=== PATIENT | male | born 1980 | race Caucasian/White ===

== ENCOUNTER 2021-11-17 14:36 | Observation (INO) ==
[2021-11-17] MEDS ORDERED: *HR* OxyCODONE Immed Rel 15 MG TABLET PO STA ×2 (20:22→20:35)
[2021-11-17] MEDS ORDERED: *HR* Dextrose 50 % in Water (Syg) 50 ML SYRINGE IVP PRN (20:23)
[2021-11-17] MEDS ORDERED: D5% in Water 1,000 ML IVC PRN (20:23)
[2021-11-17] MEDS ORDERED: Dextrose 4 GM Chewable Tablets PO PRN ×2 (20:23)
[2021-11-17] MEDS ORDERED: Prochlorperazine 10 MG/2 ML VIAL IVP PRN (20:33)
[2021-11-17] MEDS ORDERED: Naloxone 0.4 MG/ML INJ IVP PRN (20:35)
[2021-11-17] MEDS ORDERED: Acetaminophen 325 MG TABLET PO PRN (20:35)
[2021-11-17] MEDS: 0.9 % Sodium Chloride 1,000 ML IVC SCH (21:16)
[2021-11-18] MEDS ORDERED: *HR* LORazepam 2 MG/ML VIAL IVP ONE (00:02)
[2021-11-18] MEDS: Insulin LISPRO 300 UNITS/3 ML VIAL SUBQ SCH ×4 (00:08→17:10)
[2021-11-18 02:24] LABS: Hematocrit 38.4 % (37.5-50.1); Hemoglobin 13.4 g/dL (12.9-16.9); Mean Corpuscular HGB Conc 34.9 g/dL (31.6-35.5); Mean Corpuscular Hemoglobin 31.8 pg (28.0-33.3); Mean Platelet Volume 9.7 fL (9.4-12.4); Platelet Count 266 K/mcL (140-400); Red Blood Count 4.22 M/mcL (4.19-5.50); Red Cell Distribution Width 12.2 % (11.5-14.5)
[2021-11-18 02:41] LABS: BUN/Creatinine Ratio 14 (6-26); Blood Urea Nitrogen 21 mg/dL (6-20); Calcium 8.8 mg/dL (8.6-10.3); Carbon Dioxide 26 mEq/L (23-29); Chloride 104 mEq/L (98-107); Chol/HDL Ratio 3.9 (0-4.9); Cholesterol 116 mg/dL (< 200); Glucose 117 mg/dL (70-105); HDL Cholesterol 30 mg/dL (40-59); LDL Cholesterol,Calculated 51 mg/dL (< 100); Magnesium 1.8 mg/dL (1.6-2.6); Osmolality,Calculated 288 (280-300); Sodium 137 mEq/L (136-145); Triglycerides 176 mg/dL (< 150); eGFR For African Americans > 60 (> 60); eGFR For Non-African Americans 50 (> 60)
[2021-11-18 07:46] LABS: Estimated Average Glucose 151 mg/dl; Hemoglobin A1C 6.9 %
[2021-11-18] MEDS ORDERED: Venlafaxine XR (24 HR) 37.5 MG CAP.ER.24H PO SCH (09:00)
[2021-11-18] MEDS ORDERED: hydroCHLOROthiazide 25 MG TABLET PO SCH (09:00)
[2021-11-18] MEDS ORDERED: Isovue-300 50ML VIAL ONE (11:22)
[2021-11-18] MEDS ORDERED: CeFAZolin Syr 2,000MG/20 ML 2,000 MG/20 ML SYRINGE IVPB ONE (11:45)
[2021-11-18] MEDS ORDERED: Ondansetron 4 MG/2 ML VIAL IVP PRN (11:51)
[2021-11-18] MEDS ORDERED: *HR* FentaNYL (PF) 100 MCG/2 ML VIAL IVP PRN (11:51)
[2021-11-18] MEDS ORDERED: *HR* Propofol 200 MG/20 ML VIAL IVP ONE (11:57)
[2021-11-18] MEDS ORDERED: Ketorolac 30 MG/ML VIAL ONE (11:57)
[2021-11-18] MEDS ORDERED: Lidocaine -MPF 2% 5 ML VIAL ONE (11:57)
[2021-11-18] MEDS ORDERED: *HR* FentaNYL (PF) 100 MCG/2 ML VIAL ONE (11:57)
[2021-11-18] MEDS ORDERED: Ondansetron 4 MG/2 ML VIAL ONE (11:57)
[2021-11-18] MEDS ORDERED: *HR* Midazolam HCl 2 MG/2 ML VIAL ONE (11:57)
[2021-11-18] MEDS ORDERED: CeFAZolin 2,000 MG/120 ML BAG IVPB ONE (12:00)
[2021-11-18] MEDS: 0.9 % Sodium Chloride 1,000 ML IVC SCH (12:24)
[2021-11-18] MEDS ORDERED: *HR* HYDROMORPHONE 2 MG/ML VIAL ONE (13:16)
[2021-11-18] MEDS ORDERED: *HR* Dextrose 50 % in Water (Syg) 50 ML SYRINGE IVP PRN (14:16)
[2021-11-18] MEDS ORDERED: Naloxone 0.4 MG/ML INJ IVP PRN (14:16)
[2021-11-18] MEDS ORDERED: 0.9 % Sodium Chloride 1,000 ML IVC SCH (14:16)
[2021-11-18] MEDS ORDERED: Prochlorperazine 10 MG/2 ML VIAL IVP PRN (14:16)
[2021-11-18] MEDS ORDERED: Dextrose 4 GM Chewable Tablets PO PRN ×2 (14:16)
[2021-11-18] MEDS ORDERED: D5% in Water 1,000 ML IVC PRN (14:16)
[2021-11-18] MEDS ORDERED: Acetaminophen 325 MG TABLET PO PRN (14:16)
[2021-11-18] MEDS ORDERED: *HR* Belladonna Alkaloids/Opium 30 MG RECTAL SUPPOSITORY RC PRN (14:16)
[2021-11-18] MEDS ORDERED: Ringers Solution, Lactated 1,000 ML IV ONE (14:25)
[2021-11-18] MEDS ORDERED: Ringers Solution, Lactated 1,000 ML IVC SCH (14:30)
[2021-11-18] MEDS ORDERED: Melatonin 3 MG TABLET PO PRN (14:31)
[2021-11-18] MEDS ORDERED: CeFAZolin 2 GM/100 ML BAG IVPB ONE (15:00)
[2021-11-18] MEDS ORDERED: CEFAZOLIN 2 GM/100 ML IVPB ONE (15:00)
[2021-11-18] MEDS ORDERED: CEFAZOLIN 2000 MG/100 ML IVPB ONE ×2 (15:00)
[2021-11-18] MEDS ORDERED: Insulin LISPRO 300 UNITS/3 ML VIAL SUBQ SCH (18:00)
[2021-11-19 03:58] VITALS: O2SAT 96
[2021-11-19 05:23] LABS: Hematocrit 39.4 % (37.5-50.1); Hemoglobin 13.6 g/dL (12.9-16.9); Mean Corpuscular HGB Conc 34.5 g/dL (31.6-35.5); Mean Corpuscular Volume 89.7 fL (83.0-100.0); Mean Platelet Volume 9.9 fL (9.4-12.4); Platelet Count 296 K/mcL (140-400); Red Blood Count 4.39 M/mcL (4.19-5.50); Red Cell Distribution Width 12.1 % (11.5-14.5); White Blood Count 11.4 K/mcL (4.3-11.1)
[2021-11-19 05:39] LABS: BUN/Creatinine Ratio 19 (6-26); Blood Urea Nitrogen 18 mg/dL (6-20); Calcium 9.1 mg/dL (8.6-10.3); Carbon Dioxide 21 mEq/L (23-29); Chloride 102 mEq/L (98-107); Glucose 137 mg/dL (70-105); Osmolality,Calculated 282 (280-300); Potassium 4.3 mEq/L (3.5-5.1); Sodium 134 mEq/L (136-145); eGFR For African Americans > 60 (> 60); eGFR For Non-African Americans > 60 (> 60)
[2021-11-19 07:16] VITALS: BP 126/77; PULSE 76; TEMP 97.5
[2021-11-19] MEDS: Insulin LISPRO 300 UNITS/3 ML VIAL SUBQ SCH (08:16)
[2021-11-19] MEDS ORDERED: Venlafaxine XR (24 HR) 37.5 MG CAP.ER.24H PO SCH (09:00)
[2021-11-19] MEDS ORDERED: hydroCHLOROthiazide 25 MG TABLET PO SCH (09:00)
== END 2021-11-19 10:09 | disposition home or self-care (01) ==
LOC: 3BNU → SUATTDRO 17:50
PROVIDERS: ADMIT Student in an Organized Health Care Education/Training Program; ATTEND Internal Medicine